=== PATIENT | female | born 1940 | race Caucasian/White ===

== ENCOUNTER → 2016-07-17 | Outpatient (CLI) | payer OTHER ==
--- NOTE | 2016-07-17 11:15 | MA ---
Right Unilateral Digital Diagnostic Mammogram History: Asymmetry on mammograms. Comparison: Mammograms through November 04, 2006. Technique: CC and mediolateral oblique spot compression views and a true lateral view were obtained. Findings: The asymmetry on mammograms appears to resolve with additional views, however, heterogeneou sly dense breast parenchyma in the region limits sensitivity. Breast parenchyma in the area of intere st on today's study appears similar to the comparisons, allowing for transition from analog to digita l technique. Impression: Probable resolution of asymmetry on mammograms. BI-RADS 0: Needs additional imaging evaluation. Recommendation: Ultrasound, which will be performed later the same day. Please see ultrasound report and recommendations. [facility] will send a result letter to the patient.
--- NOTE | 2016-07-17 11:27 | US ---
Diagnostic Right Breast Ultrasound History: Asymmetry on mammograms. Comparison: Diagnostic mammogram same day. Technique: Limited grayscale and Doppler ultrasound in the region of mammographic abnormality is perf ormed. Real-time sonography is performed by the radiologist. Findings: Breast parenchyma in the area of interest is normal. Tiny simple cysts in the upper-outer r ight breast are unrelated to the mammographic asymmetry. No solid masses or areas of architectural di stortion are identified. Impression: BI-RADS 2: Benign Findings. Recommendation: Screening mammograms in one year or sooner if clinically indicated. Findings and recommendations were discussed with the patient. [facility] will send a result letter to the patient.
== END ==
LOC: BRMIMAGING 09:41
DX: Z12.39 Encounter for other screening for malignant neoplasm of breast (principal); R92.2 Inconclusive mammogram
CPT/HCPCS: 76641; G0206

== ENCOUNTER → 2017-07-15 | Outpatient (CLI) | payer OTHER | LOC: BRMIMAGING 14:18 | PROVIDERS: ATTEND Family Medicine | DX: Z12.31 Encounter for screening mammogram for malignant neoplasm of breast (principal); Z13.820 Encounter for screening for osteoporosis; M85.80 Other specified disorders of bone density and structure, unspecified site ==

== ENCOUNTER → 2018-07-17 | Outpatient (CLI) | payer OTHER | LOC: BRMIMAGING 10:33 | PROVIDERS: ATTEND Family Medicine | DX: Z12.31 Encounter for screening mammogram for malignant neoplasm of breast (principal) ==